=== PATIENT | male | born 1960 | race Caucasian/White ===

== ENCOUNTER 2017-02-24 13:59 | Inpatient (IN) | payer BC, OTHER ==
[~2017-02-24] VITALS: Ht 185.4 cm; Wt 111.1 kg
[2017-02-24] VITALS: BP 130/75
[2017-02-24] MEDS ORDERED: IBUPROFEN 400 MG TABLET PO PRN (14:30)
[2017-02-24] MEDS ORDERED: MIRALAX 17 GM POWD.PACK PO PRN (14:30)
[2017-02-24] MEDS ORDERED: ACETAMINOPHEN 325 MG TABLET PO PRN (14:30)
[2017-02-24] MEDS ORDERED: MAG HYDROX/AL HYDROX/SIMETH 30 ML LIQUID UDC PO PRN (14:30)
[2017-02-24] MEDS ORDERED: LORAZEPAM 2 MG/1 ML VIAL IM PRN (14:30)
[2017-02-24] MEDS ORDERED: ONDANSETRON ODT 4 MG TAB.RAPDIS SL PRN (14:30)
[2017-02-24] MEDS ORDERED: LORAZEPAM 1 MG TABLET PO PRN (14:30)
[2017-02-24] MEDS ORDERED: LOPERAMIDE HCL 2 MG CAPSULE PO PRN ×2 (14:30)
[2017-02-24] MEDS ORDERED: ONDANSETRON 4 MG/2 ML VIAL IM PRN (14:30)
[2017-02-24 15:00] VITALS: BP 173/95
--- NOTE | 2017-02-24 15:00 | NUR ---
Pre-admission Note: Client is seen in intake at this time. Alert and verbally responsive. Oriented x 4. Able to make his needs known. Patient states that he is here due to a drinking problem. He denies any allergies to any medication. Denies any seizure history in the past. Reports past medical hx of peripheral neuropathy, appendectomy, anxiety and insomnia. Patient appears anxious with fine tremors, and mild sweats. CIWA 4. BP 173/95, AK 101, PL 0/10, Temp 98.1, RR 18, O2 sat 95% via RA. Patient denies any complains of dizziness, drowsiness, chest pain, blurred vision or headache. Patient was seen by MD Almodovar while in intake and will continue with the admission process when patient arrives in the unit. Educated patient on the admission process and was able to verbalize good understanding of all teachings.
--- NOTE | 2017-02-24 15:05 | NUR ---
Admission Notes: Patient arrived in the unit at this time. A tour of the unit and explanation of policies and procedures were rendered and patient verbalized good understanding. He remains alert and verbally responsive. Oriented x 4. Appears anxious with mild tremors. Respirations even and unlabored. No SOB noted. Skin warm and moist to touch. Body search done. No contraband was found. Skin search done by male nurse. Noted with left knee skin abrasion patient states that he does not remember how he sustained it. Denies any fall episodes while at home. Abdomen soft and non-distended with (+) BS in all 4 quadrants. no complains of N/V/D or constipation noted at this time. LBM was this am 02/24/2017. Voids independently. Ambulatory ad gwendolyn with steady gait. Patient is a 57 year old male admitted for ETOH dependence under the care of Dr. Alexis Almodovar for ETOH dependence. He reports NKA. Wishes to be FULL CODE. Follows a regular diet at home. Denies seizure history. Reports past medical hx of peripheral neuropathy, anxiety, insomnia and appendectomy. He states that the cause of his relapse was due to negative emotions related to his divorces, feeling of loneliness and social isolation. He reports that his withdrawal symptoms are mainly tremors and DT's. Patient appears acutely intoxicated from ETOH at this time. Fall and seizure precautions in place. Ptient states hat his PCP is Dr. Eddie Jones. : Subtance Use History: 1. ETOH - at 43 years old; Drinks 3-4 bottles (750cc/ea) of wine and 750cc of Tequila daily. Last use was day of admission at 1000 750 ml of tequila. 2. Xanax - 1 mg PO intermittently x 1 year. Last use was a month ago. 3. Ambien - 10 mg PO intermittently x 1 year. Patient does not remember when the last time he took it. Treatment History: 1. Patient does not remember the place where he was but was in treatment in 2009 x 30 days. Safety precautions in place. Dr. Almodovar entered in admission orders and patient will be on a 5-day Ativan taper.
[2017-02-24] MEDS ORDERED: THIAMINE HCL 200 MG/2 ML VIAL IM ONE (15:13)
[2017-02-24] MEDS: CLONIDINE HCL 0.1 MG TABLET PO PRN (15:54)
--- NOTE | 2017-02-24 15:54 | NUR ---
Clonidine 0.1mg PO given: Patient's BP 173/95, Pulse 101. Appears anxious with mild tremors. CIWA 4. Medicated patient with Clonidine 0.1mg PO as ordered. Will monitor for effectiveness.
[2017-02-24 16:00] VITALS: BP 130/91
[2017-02-24 16:02] LABS: *AMPHETAMINE, URINE NEGATIVE (NEGATIVE); *BARBITURATE, URINE NEGATIVE (NEGATIVE); *CANNABINOID, URINE NEGATIVE (NEGATIVE); *COCCAINE, URINE NEGATIVE (NEGATIVE); *OPIATE, URINE NEGATIVE (NEGATIVE); *PHENCYCLIDINE SCREEN,URINE NEGATIVE (NEGATIVE)
[2017-02-24 16:30] LABS: BASOPHILS % (AUTO) 0.7 % (0.0-2.0); EOSINOPHILS % (AUTO) 0.3 % (0.0-7.0); HEMATOCRIT 45.8 % (40-50); HEMOGLOBIN 15.6 G/DL (14.0-18.0); LYMPHOCYTES # (AUTO) 1.8 K/UL (0.8-4.8); LYMPHOCYTES % (AUTO) 34.4 % (20.5-51.5); MEAN CORPUSCULAR HEMOGLOBIN 32.1 UUG (27.0-31.0); MEAN CORPUSCULAR HGB CONC 34 g/dL (32.0-37.0); MEAN CORPUSCULAR VOLUME 94.2 FL (82.0-92.0); MONOCYTES # (AUTO) 0.4 K/UL (0.1-1.30); MONOCYTES % (AUTO) 7.2 % (0.0-11.0); NEUTROPHILS # (AUTO) 2.9 K/UL (1.8-8.9); NEUTROPHILS % (AUTO) 57.4 % (38.5-71.5); PLATELET COUNT (AUTO) 194 K/UL (150-450); RED BLOOD CELL COUNT(AUTO) 4.87 MIL/UL (4.7-6.1); WHITE BLOOD COUNT (AUTO) 5.1 K/UL (4.0-11.2)
[2017-02-24 16:38] LABS: BILIRUBIN,TOTAL 0.4 mg/dL (0.2-1.0); CREATININE 0.8 mg/dL (0.6-1.3); MAGNESIUM 1.9 mg/dL (1.8-2.4); POTASSIUM 4.3 mmol/L (3.5-5.1); TOTAL PROTEIN, SERUM 8.3 g/dL (6.4-8.2)
--- NOTE | 2017-02-24 16:54 | NUR ---
Re-assessment: Clonidine Patient's BP 130/91. PRN Clonidine was effective.
[2017-02-24] MEDS ORDERED: SILD50TA PO (17:42)
[2017-02-24] MEDS ORDERED: VARD20TA31 PO (17:43)
--- NOTE | 2017-02-24 18:53 | NUR ---
End of Shift Notes: Patient will be on 5-day Ativan taper starting tomorrow. No adverse reactions noted. Withdrawal symptoms monitored. Initial CIWA 4, Last CIWA 4. VS monitored closely. BP 178/95 upon admission, medicated patient with Clonidine 0.1mg PO as ordered with help after 1 hour. Last BP 130/91. Compliant with care and treatment. All needs met and attended. Will monitor closely.
--- NOTE | 2017-02-24 19:45 | NUR ---
START OF SHIFT Received report from day shift nurse. Pt is lying in bed resting. He is a 57 yo male admitted to [facility] today for ETOH dependence. He is A&O x4 and ambulatory. NKA, full code status, and on a regular diet. He has a PMH appendectomy, peripheral neuropathy, anxiety, insomnia, DT's. On admission he reported using tequila 750mL and 3-4 750mL bottles of wine, xanax 1mg at bedtime, and ambien "unknown amount". 5 day Ativan taper to start tomorrow. Ativan one time ordered for tonight. Pt reports inability to relax and fall sleep. He is observed with facial flushing. Fall and seizure precautions in place. Bed is down with call light in reach.
[2017-02-24 20:00] VITALS: BP 134/92
[2017-02-24] MEDS ORDERED: LORAZEPAM 1 MG TABLET PO ONE (21:00)
[2017-02-24] MEDS: diphenhydrAMINE 50 MG CAPSULE PO PRN (21:27)
--- NOTE | 2017-02-24 21:27 | NUR ---
PRN Benadryl Pt reports inability to sleep. PRN Benadryl administered.
--- NOTE | 2017-02-24 22:27 | NUR ---
PRN Benadryl reassessment PRN Benadryl effective. Pt is lying in bed resting with eyes closed. Respirations even and unlabored. Safety measures in place.
[2017-02-25] VITALS (10 sets, daily range): BP systolic 130–192; BP diastolic 75–112
--- NOTE | 2017-02-25 | NUR ---
0000 CIWA deferred CIWA ordered Q4HWA. Pt is lying in bed resting with eyes closed. Respirations even and unlabored. Vital signs obtained. Safety measures in place.
[2017-02-25] MEDS: CLONIDINE HCL 0.1 MG TABLET PO PRN (04:21)
[2017-02-25] MEDS: LORAZEPAM 1 MG TABLET PO PRN ×2 (04:21→07:03)
--- NOTE | 2017-02-25 04:24 | NUR ---
PRN Ativan and Clonidine Pt's B/P is 160/99. He is anxious and unable to sleep. CIWA score 5. PRN Clonidine and Ativan administered.
--- NOTE | 2017-02-25 05:30 | NUR ---
PRN Clonidine and Ativan reassessment PRN Ativan effective. Pt reports feeling more relaxed. CIWA score 3. PRN Clonidine not effective. Pt's B/P is 163/92.
[2017-02-25] MEDS: hydrALAZINE HCL 50 MG TABLET PO PRN ×2 (05:45→12:35)
--- NOTE | 2017-02-25 05:45 | NUR ---
PRN Hydralazine Pt's B/P is 163/92 and HR 74. He is observed with facial flushing and has moist skin. He denies any other s/s of withdrawal. PRN Hydralazine administered.
--- NOTE | 2017-02-25 06:50 | NUR ---
PRN Hydralazine reassessment PRN Hydralazine mildly effective. Pt's B/P is 156/92 and HR 90. He is lying in bed resting.
--- NOTE | 2017-02-25 07:03 | NUR ---
PRN Ativan Pt's B/P is 156/92 and HR 90. He is experiencing cold sweats with mild hand tremors. CIWA 7. PRN Ativan administered.
--- NOTE | 2017-02-25 07:25 | NUR ---
END OF SHIFT Report provided to day shift nurse. Pt is lying in bed resting. He is a 57 yo male admitted to [facility] today for ETOH dependence. He is A&O and ambulatory. NKA, full code status, and on a regular diet. He has a PMH appendectomy, peripheral neuropathy, anxiety, insomnia, DT's. On admission he reported using tequila 750mL and 3-4 750mL bottles of wine, xanax 1mg at bedtime, and ambien "unknown amount". 5 day Ativan taper to start today. Pt was hypertensive. PRN Clonidine, Hydralazine, and Ativan x2 administered. Endorsed to day shift for PRN Ativan reassessment. Last CIWA was 7 prior to the Ativan. He drank 1500mL and slept for 4 hours. Fall and seizure precautions in place. Bed is down with call light in reach.
--- NOTE | 2017-02-25 07:49 | NUR ---
BEGINNING OF SHIFT Patient endorsement report received from seismology teacher nurse, all pertinent information discussed. patient is a 57 year old male admitted on: 02/24/2017. with admitting Dx: etoh/BZO dependence. patient Is scheduled to begin a 5 day Ativan taper as ordered, scheduled to begin day 1 of taper. patients skin is intact. per seismology teacher patient slept for 4 hours, and received PRN: clonidine, hydralazine and Ativan x2, during seismology teacher. Patient received awake, alert and oriented x4, educated regarding plan of care for the day and medication regimen with good verbal understanding. safety measures in place. call light kept with in reach, will continue to monitor, will reassess Ativan administration of 0700. will continue to monitor.
--- NOTE | 2017-02-25 08:00 | NUR ---
ATIVAN REASSESSMENT Medication ineffective, patient with current ciwa score of: 12. Patient is scheduled to begin 5 day Ativan, will administer first dose (0900) as ordered.
[2017-02-25 08:06] LABS: HEPATITIS B SURFACE AG Negative (Negative)
[2017-02-25] MEDS: MULTIVITAMINS,THERAPEUTIC TABLET PO SCH (08:25)
[2017-02-25] MEDS: LORAZEPAM 1 MG TABLET PO SCH ×4 (08:25→21:48)
[2017-02-25] MEDS: THIAMINE HCL 100 MG TABLET PO SCH (08:26)
[2017-02-25] MEDS: FOLIC ACID 1 MG TABLET PO SCH (08:26)
[2017-02-25] MEDS: ASPIRIN 81 MG TAB.CHEW PO SCH (08:26)
[2017-02-25] MEDS ORDERED: TUBERCULIN,PURIF.PROT.DERIV. 5 TU/0.1 ML TEST ID ONE (09:00)
--- NOTE | 2017-02-25 12:35 | NUR ---
PRN APRESOLINE Patient with blood pressure: 192/108 heart rate 101, administered Apresoline 50mg Po as ordered, will monitor effectiveness, patient denies chest pain or dizziness. will monitor closely.
--- NOTE | 2017-02-25 13:35 | NUR ---
PRN REASSESSMENT Patients blood pressure 189/92, notified MD per MD patient will input new orders.
[2017-02-25] MEDS ORDERED: AMLODIPINE 5 MG TABLET PO ONE ×2 (15:00→17:00)
[2017-02-25] MEDS: CLONIDINE HCL 0.2 MG TABLET PO PRN (15:07)
--- NOTE | 2017-02-25 15:09 | NUR ---
PRN CLONIDINE Patient continues with elevated blood pressure: BP at 1509: 184/112 heart rate of: 92, Administered clonidine 0.2mg PO as ordered, will monitor effectiveness of medication.
--- NOTE | 2017-02-25 16:30 | NUR ---
CLONIDINE REASSESSMENT Medication effective, patients blood pressure decreased to: 158/89 heart rate: 85, will continue to monitor. safety measures in place.
--- NOTE | 2017-02-25 16:46 | NUR ---
Therapist prompted client to attend group therapy. Client stated that he would attend.
--- NOTE | 2017-02-25 19:02 | NUR ---
END OF SHIFT Patient alert and orientedx4, compliant with therapeutic plan of care, patient with admitting Dx: eoth dependence. Patient continues on 5 day Ativan taper and continues on day 1 of taper, well tolerated, no ASE noted. Patient 0900 assessment presented with: fine tremors, sweating obvious on forehead, anxiety, mild pins and needles to feet with ciwa score of: 12; 1300 assessment patient presented with: fine tremors, sweats obvious on forehead, anxiety and mild pins and needles to feet with ciwa score of: 12; 1700 assessment patient presented with: fine tremors, sweats obvious on forehead, anxiety, mild pins and needles to feet with ciwa score of: 12. Patient was encouraged adequate PO fluid intake as tolerated. Encouraged to attend group therapies/sessions to learn new coping skills to prevent relapse, patient noted attending and participating denies any SI/HI. Patient received PRN: Apresoline and clonidine during shift, medications were effective. Patients safety measures in place. Call light kept with in reach. Endorsed to third shift lieutenant nurse, all pertinent information discussed. Will continue to monitor.
--- NOTE | 2017-02-25 20:00 | NUR ---
Start of Shift Notes Received 57 year old male admitted on: 02/24/2017. with admitting Dx: etoh/BZO dependence. Px Is on 5 day Ativan taper as ordered. Px is on Full Code, regular diet and has NKA. During the rounds at 2000, no complaints made as of the moment. Px just want to have pill to help him sleep tonight. Safety measures in place. Call light kept with in reach, We'll continue to monitor.
[2017-02-25] MEDS: diphenhydrAMINE 50 MG CAPSULE PO PRN (21:48)
--- NOTE | 2017-02-25 21:48 | NUR ---
PRN Benadryl Px request to have pill to help him sleep tonight. Benadryl 50 mg/cap, 1 cap given PO as PRN med. We'll continue to monitor.
[2017-02-26] VITALS: BP 158/96
--- NOTE | 2017-02-26 | NUR ---
CIWA deferred CIWA deferred due to the px is sleeping, to assess if the px is awake per doctor's order. We'll continue to monitor.
[2017-02-26 04:00] VITALS: BP 155/90
[2017-02-26] MEDS: CLONIDINE HCL 0.2 MG TABLET PO PRN (06:49)
[2017-02-26] MEDS: hydrALAZINE HCL 50 MG TABLET PO PRN (06:50)
--- NOTE | 2017-02-26 06:50 | NUR ---
PRN meds Px complained of H/A. BP= 177/114 , ND=86. Apresoline 50 mg/tab, 1 tab; Clonidine 0.2 mg/tab, 1 tab and Motrin 400 mg/tab, 1 tab given PO as PRN meds. We'll continue to monitor.
--- NOTE | 2017-02-26 07:13 | NUR ---
End of Shift Notes 57 year old male admitted on: 02/24/2017. with admitting Dx: etoh/BZO dependence. Px Is on 5 day Ativan taper as ordered.Px is on Full Code, regular diet and has NKA. During the shift, Px wanted to have pill to help him sleep tonight. Benadryl 50 mg/cap, 1 cap given PO as PRN med. Px complained of H/A at around 0645, BP= 177/114 , HI=86. Apresoline 50 mg/tab, 1 tab; Clonidine 0.2 mg/tab, 1 tab and Motrin 400 mg/tab, 1 tab given PO as PRN meds. Oral intake of 1 L, voided 2x, no BM. Slept for 7 hrs. Safety measures in place. Call light kept within reach, We'll continue to monitor.
--- NOTE | 2017-02-26 07:41 | NUR ---
BEGINNING OF SHIFT Patient endorsement report received from night warehouse manager nurse, all pertinent information discussed. patient is a 57 year old male admitted on: 02/24/2017. with admitting Dx: etoh/BZO dependence. patient Is scheduled to begin a 5 day Ativan taper as ordered, scheduled to begin day 2 of taper. patients skin is intact. per night warehouse manager patient slept for 7 hours, and received PRN: Apresoline, clonidine, and Motrin, during night warehouse manager. Patient received awake, alert and oriented x4, educated regarding plan of care for the day and medication regimen with good verbal understanding. safety measures in place. call light kept with in reach, will continue to monitor.
[2017-02-26] MEDS: FOLIC ACID 1 MG TABLET PO SCH (08:43)
[2017-02-26] MEDS: ASPIRIN 81 MG TAB.CHEW PO SCH (08:43)
[2017-02-26] MEDS: MULTIVITAMINS,THERAPEUTIC TABLET PO SCH (08:43)
[2017-02-26] MEDS: LORAZEPAM 1 MG TABLET PO SCH ×3 (08:44→20:59)
[2017-02-26] MEDS: THIAMINE HCL 100 MG TABLET PO SCH (08:44)
[2017-02-26 08:54] VITALS: BP 143/86
[2017-02-26] MEDS ORDERED: AMLODIPINE 5 MG TABLET PO SCH (09:00)
[2017-02-26 13:12] VITALS: BP 141/88
[2017-02-26 17:39] VITALS: BP 145/84
--- NOTE | 2017-02-26 18:58 | NUR ---
END OF SHIFT Patient alert and orientedx4, compliant with therapeutic plan of care, patient with admitting Dx: eoth dependence. Patient continues on 5 day Ativan taper and continues on day 2 of taper, well tolerated, no ASE noted. Patient 0900 assessment presented with: fine tremors, barely sweating, and moderate anxiety with ciwa score of: 7; 1300 assessment patient presented with: fine tremors and moderate anxiety with ciwa score of: 7;1700 assessment patient present with: fine tremors, and barely sweating with ciwa score of: 7. Patient was encouraged adequate PO fluid intake as tolerated. Encouraged to attend group therapies/sessions to learn new coping skills to prevent relapse, patient noted attending and participating denies any SI/HI. Patient received no PRNs during shift. Patients safety measures in place. Call light kept with in reach. Endorsed to night nurse nurse, all pertinent information discussed. Will continue to monitor.
--- NOTE | 2017-02-26 19:15 | NUR ---
START OF SHIFT : Pt. admitted on 02/24/2017 for ETOH dependence. Patient placed on 5 day Ativan taper on 02/25/2017 , well tolerated, no ASE noted. Upon 19:00 assessment patient present with: fine tremors, and barely sweating with CIWA score of: 7. Patient alert and oriented x4, compliant with therapeutic plan of care. Patient was encouraged adequate PO fluid intake as tolerated. Pt. attending the group , denies any SI/HI. Safety measures in place : bed on lowest position with side rails x2 up for safety, call light within reach. Will continue to monitor closely and offer help.
[2017-02-26 20:00] VITALS: BP 170/105
[2017-02-26] MEDS ORDERED: ATENOLOL 50 MG TABLET PO ONE (21:00)
[2017-02-26] MEDS ORDERED: LOSARTAN POTASSIUM 50 MG TABLET PO ONE (21:00)
[2017-02-27] VITALS: BP 126/78
[2017-02-27 04:00] VITALS: BP 142/81
--- NOTE | 2017-02-27 06:50 | NUR ---
END OF SHIFT : Pt. admitted on 02/24/2017 for ETOH dependence. Patient placed on 5 day Ativan taper on 02/25/2017 , well tolerated, no ASE noted. Pt remains compliant with the treatment plan. No PRNs were given during my shift. V/S remain WNL. RR=16, even and unlabored, lungs clear upon auscultation, abdomen soft and non- distended. Pt denies nausea, vomiting and diarrhea. CIWA taken when pt. was alert during the night, LAST CIWA=3 at 0400 , INTAKE= 1547 ml, voided x 3, slept 7 hours. Safety measures in place : bed on lowest position with side rails x2 up for safety, call light within reach. Will continue to monitor closely and offer help.
--- NOTE | 2017-02-27 07:59 | NUR ---
BEGINNING OF SHIFT Patient endorsement report received from supervisor steno pool nurse, all pertinent information discussed. patient is a 57 year old male admitted on: 02/24/2017. with admitting Dx: etoh/BZO dependence. patient continues on 5 day Ativan taper as ordered, scheduled to begin day 3 of taper. patients skin is intact. per supervisor steno pool patient slept for 7 hours, and received no PRNs during supervisor steno pool. Patient received awake, alert and oriented x4, educated regarding plan of care for the day and medication regimen with good verbal understanding. safety measures in place. call light kept with in reach, will continue to monitor.
[2017-02-27] MEDS ORDERED: LORAZEPAM 1 MG TABLET PO SCH (09:00)
[2017-02-27] MEDS ORDERED: ATENOLOL 50 MG TABLET PO SCH (09:00)
[2017-02-27] MEDS ORDERED: LOSARTAN POTASSIUM 50 MG TABLET PO SCH (09:00)
[2017-02-27 09:02] VITALS: BP 162/96
[2017-02-27] MEDS: MULTIVITAMINS,THERAPEUTIC TABLET PO SCH (09:02)
[2017-02-27] MEDS: FOLIC ACID 1 MG TABLET PO SCH (09:02)
[2017-02-27] MEDS: LORAZEPAM 1 MG TABLET PO SCH ×3 (09:02→20:40)
[2017-02-27] MEDS: ASPIRIN 81 MG TAB.CHEW PO SCH (09:03)
[2017-02-27] MEDS: hydrALAZINE HCL 50 MG TABLET PO PRN (09:03)
[2017-02-27] MEDS: THIAMINE HCL 100 MG TABLET PO SCH (09:03)
--- NOTE | 2017-02-27 09:03 | NUR ---
PRN APRESOLINE Patient with blood pressure: 162/96 heart rate 69, administered Apresoline 50mg Po as ordered, will monitor effectiveness, patient denies chest pain or dizziness. will monitor closely.
--- NOTE | 2017-02-27 10:03 | NUR ---
PRN REASSESSMENT Patients blood pressure 144/88, medication effective, will continue to monitor.
[2017-02-27 12:31] VITALS: BP 136/75
[2017-02-27] MEDS ORDERED: CARVEDILOL 12.5 MG TABLET PO ONE (15:00)
[2017-02-27 17:03] VITALS: BP 136/76
--- NOTE | 2017-02-27 18:50 | NUR ---
END OF SHIFT Patient alert and orientedx4, compliant with therapeutic plan of care, patient with admitting Dx: eoth dependence. Patient continues on 5 day Ativan taper and continues on day 3 of taper, well tolerated, no ASE noted. Patient 0900 assessment presented with: fine tremors, and anxiety with ciwa score of: 4; 1300 assessment patient presented with: fine tremors and anxiety with ciwa score of: 4; 1700 assessment patient presented with; fine tremors, and anxiety with ciwa score of: 4. Patient was encouraged adequate PO fluid intake as tolerated. Encouraged to attend group therapies/sessions to learn new coping skills to prevent relapse, patient noted attending and participating denies any SI/HI. Patient received PRN: Apresoline during shift, medication was effective. Patients safety measures in place. Call light kept with in reach. Endorsed to welder 2nd shift nurse, all pertinent information discussed. Will continue to monitor.
--- NOTE | 2017-02-27 18:50 | NUR ---
START OF SHIFT NOTE: Patient is a 42 year old female admitted to [facility] on 02/24/2017 for Benzodiazepines and Alcohol dependence, continue 5 Day Ativan Taper. Patient tolerated well without ASE. Patient remains compliant with treatment, medications, and diet regime. Patient reports NKA. Patient is on Full Code, Regular Diet, Fall and Seizures Precautions. Patient reports Past Medical History: Anxiety, Depression, Peripheral nephropathy, Insomnia, DT's, Substance abuse disorder, Tobacco use disorder. Patient reports substance use history: "Alcohol - Tequila PO 750 ml every day, or Wine PO 3-4 bottle/750 ml every day since 2006. Last used 750 m of Tequila on 02/24/2017". "Xanax 1 mg HS every day since 2015. Last used 1 mg in January,". "Ambien unknown amount three months ago". Patient reports history of recent Hospitalization/Treatment: "Unable recall name of the place - 2009 x30 days". Upon endorsement, patient is resting in her room. CIWA 7. VS: T: 98'2, BP: 124/76, HR: 60, RR: 16, RA O2Sat: 94%, pain level: "0/10". Respirations unlabored and even. Lung Sounds are clear throughout. Abdomen is soft. Bowel Sounds are active in all 4 quadrants. Skin is warm, and dry to touch. Patient has Left Knee healed abrasion. DVT pumps in place as ordered. Patient denies SI/HI. Encouraged to fluid intake as tolerated. Encouraged group activities to attend. All needs met. All safety measures in place: Call light within reach, bed in lowest position and locked, padded rails up x2. Will continue to monitor closely. Addendum: 02/28/17 at 0701 by YAMILE SWANSON RN Patient is a 57 year old male admitted to [facility] on 02/24/2017 for Alcohol dependence continue 5 Day Ativan Taper.
[2017-02-27 20:00] VITALS: BP 124/76
[2017-02-27] MEDS: CARVEDILOL 12.5 MG TABLET PO SCH (20:41)
[2017-02-27] MEDS ORDERED: LOSARTAN POTASSIUM 50 MG TABLET PO ONE (21:00)
[2017-02-28] VITALS: BP 134/79
[2017-02-28 04:00] VITALS: BP 130/80
--- NOTE | 2017-02-28 06:56 | NUR ---
END OF SHIFT NOTE: Patient is a 42 year old female admitted to [facility] on 02/24/2017 for Alcohol dependence continue 5 Day Ativan Taper. Patient tolerated well without ASE. Patient remains compliant with treatment, medications, and diet regime. Patient reports NKA. Patient is on Full Code, Regular Diet, Fall and Seizures Precautions. Patient reports Past Medical History: Anxiety, Depression, Peripheral nephropathy, Insomnia, DT's, Substance abuse disorder, Tobacco use disorder. Patient reports substance use history: "Alcohol - Tequila PO 750 ml every day, or Wine PO 3-4 bottle/750 ml every day since 2006. Last used 750 m of Tequila on 02/24/2017". "Xanax 1 mg HS every day since 2015. Last used 1 mg in January,". "Ambien unknown amount three months ago". Last CIWA 3 @0400. COWS/CIWA taken when patient's awake during night. Last VS @0400: T: 98.5, BP: 101/66, HR: 71, RR:16, RA O2Sat: 100%, pain level: "0/10". Patient denies SI/HI. Respirations unlabored and even. Skin is warm, and dry to touch. Patient has Left Knee healed abrasion. No PRN Medications administrated last police shift commander. Patient slept 5 hours, intake 1,490 ml, voided x4, stool x2. Encouraged fluids intake as tolerated. Encouraged to attend groups activities. All needs met. Safety measures on place. Call light within reach, bed in lowest position and locked, padded rails up bilaterally. Patient endorsed to day shift nurse. Report given. Addendum: 02/28/17 at 0701 by YAMILE SWANSON RN Patient is a 57 year old male admitted to [facility] on 02/24/2017 for Alcohol dependence continue 5 Day Ativan Taper.
--- NOTE | 2017-02-28 07:30 | NUR ---
START OF SHIFT Pt is a 57 yr old male, AA&Ox4. Pt was admitted 02/24/17 for ETOH/Benzo Dependence and is on 5 day Ativan taper as ordered. Medication ariana well. Received report from retail shift manager nurse. No PRN's were given during the night. Pt slept for 5 hrs. Last CIWA score was 3 at 0400. Pt denies any anxiety or agitation at this time. Skin is intact, warm and dry to touch. No Tremor seen or felt. Pt denies any n/v. Safety precautions observed. Call light is within reach. Will continue to monitor.
[2017-02-28 08:00] VITALS: BP 150/90
[2017-02-28] MEDS: MULTIVITAMINS,THERAPEUTIC TABLET PO SCH (08:36)
[2017-02-28] MEDS: LORAZEPAM 1 MG TABLET PO SCH ×2 (08:36→21:05)
[2017-02-28] MEDS: ASPIRIN 81 MG TAB.CHEW PO SCH (08:36)
[2017-02-28] MEDS: FOLIC ACID 1 MG TABLET PO SCH (08:36)
[2017-02-28] MEDS: THIAMINE HCL 100 MG TABLET PO SCH (08:36)
[2017-02-28] MEDS: CARVEDILOL 12.5 MG TABLET PO SCH ×2 (08:36→21:06)
[2017-02-28] MEDS: LOSARTAN POTASSIUM 50 MG TABLET PO SCH (08:44)
[2017-02-28] MEDS ORDERED: LORAZEPAM 1 MG TABLET PO SCH (09:00)
[2017-02-28 12:00] VITALS: BP 159/92
--- NOTE | 2017-02-28 12:11 | NUR ---
Therapist prompted client about group times. Client stated he will attend all groups today.
[2017-02-28 16:00] VITALS: BP 155/92
--- NOTE | 2017-02-28 19:00 | NUR ---
END OF SHIFT Pt is a 57 yr old male, AA&Ox4. Pt was admitted 02/24/17 for ETOH/Benzo Dependence and is on 5 day Ativan taper as ordered. Medication ariana well. Pt has been cooperative with plan of care and medication regimen. Pt attended group sessions. No PRN's were given. Last CIWA score was 1 at 1600. Pt denies any anxiety or agitation at this time. Skin is intact, warm and dry to touch. No Tremor seen or felt. Pt denies any n/v. Safety precautions observed. Call light is within reach.
--- NOTE | 2017-02-28 19:30 | NUR ---
START OF SHIFT Pt is a 57 yr old male, A/A&Ox4. Pt is admitted for ETOH/Benzo Dependence and is on 5 day Ativan taper as ordered. Pt is tolerating medication well.Pt is on regular diet,has NKA,on full code status.No seizure history noted.Received in a stable condition;no c/o pain or s/s of acute distress noted..All safety measures in place per hospital policy with call cooper within reach;will continue to monitor.
[2017-02-28 20:00] VITALS: BP 138/79
[2017-03-01] VITALS (7 sets, daily range): BP systolic 111–161; BP diastolic 79–104
--- NOTE | 2017-03-01 07:01 | NUR ---
END OF SHIFT Pt is a 57 yr old male, A/A&Ox4. Pt is admitted for ETOH/Benzo Dependence and is on 5 day Ativan taper as ordered. Pt is tolerating medication well.Pt is on regular diet,has NKA,on full code status.No seizure history noted;no c/o pain or s/s of acute distress noted.no prn meds given,pt slept 8 hrs,fluid intake was 1240 mls,voided x 3,b/m x 1..All safety measures in place per hospital policy with call cooper within reach;will continue to monitor.
--- NOTE | 2017-03-01 07:29 | NUR ---
LAST CIWA=0.
--- NOTE | 2017-03-01 07:39 | NUR ---
BEGINNING OF SHIFT Patient endorsement report received from tree pruner nurse, all pertinent information discussed. patient is a 57 year old male admitted on: 02/24/2017. with admitting Dx: etoh/BZO dependence. patient continues on 5 day Ativan taper as ordered, scheduled to begin day 5 of taper. patients skin is intact. per tree pruner patient slept for 8 hours, and received no PRNs during tree pruner. Patient received awake, alert and oriented x4, educated regarding plan of care for the day and medication regimen with good verbal understanding. safety measures in place. call light kept with in reach, will continue to monitor.
[2017-03-01] MEDS: hydrALAZINE HCL 50 MG TABLET PO PRN (08:49)
[2017-03-01] MEDS: THIAMINE HCL 100 MG TABLET PO SCH (08:49)
[2017-03-01] MEDS: FOLIC ACID 1 MG TABLET PO SCH (08:49)
[2017-03-01] MEDS: MULTIVITAMINS,THERAPEUTIC TABLET PO SCH (08:49)
[2017-03-01] MEDS: LOSARTAN POTASSIUM 50 MG TABLET PO SCH (08:49)
[2017-03-01] MEDS: CARVEDILOL 12.5 MG TABLET PO SCH ×2 (08:49→21:27)
[2017-03-01] MEDS: ASPIRIN 81 MG TAB.CHEW PO SCH (08:49)
--- NOTE | 2017-03-01 08:49 | NUR ---
PRN APRESOLINE Patient with blood pressure: 161/104 heart rate 66, administered Apresoline 50mg Po as ordered, will monitor effectiveness, patient denies chest pain or dizziness. will monitor closely.
[2017-03-01] MEDS ORDERED: LORAZEPAM 1 MG TABLET PO SCH (09:00)
--- NOTE | 2017-03-01 09:49 | NUR ---
PRN REASSESSMENT Patients blood pressure 146/82, medication effective, will continue to monitor.
[2017-03-01] MEDS ORDERED: CARV12.52 PO (14:53)
[2017-03-01] MEDS ORDERED: AMLO5TAB2 PO (14:53)
[2017-03-01] MEDS ORDERED: DIPH50CA37 PO (14:53)
[2017-03-01] MEDS ORDERED: LOSA50TA3 PO (14:53)
[2017-03-01] MEDS ORDERED: ASPI81TA31 PO (14:53)
--- NOTE | 2017-03-01 19:20 | NUR ---
END OF SHIFT Patient alert and orientedx4, compliant with therapeutic plan of care, patient with admitting Dx: eoth dependence. Patient continues on 5 day Ativan taper and continues on day 5 of taper, well tolerated, no ASE noted. Patient completed Ativan taper and is scheduled to be discharged tomorrow, noted self motivated towards sobriety. Patient 0900 assessment presented with: anxiety with ciwa score of: 3; 1300 assessment patient presented with: mild anxiety with ciwa score of: 1; 1700 assessment patient presented with: mild anxiety with ciwa score of;1. Patient was encouraged adequate PO fluid intake as tolerated. Encouraged to attend group therapies/sessions to learn new coping skills to prevent relapse, patient noted attending and participating denies any SI/HI. Patient received PRN: Apresoline during shift, medication was effective. Patients safety measures in place. Call light kept with in reach. Endorsed to orthopedic assistant nurse, all pertinent information discussed. Will continue to monitor.
--- NOTE | 2017-03-01 19:30 | NUR ---
START OF SHIFT Pt is a 57 yr old male, A/A&Ox4. Pt is admitted for ETOH/Benzo Dependence .Pt has completed 5 day Ativan taper as ordered and is scheduled for discharge tomorrow.Pt is on regular diet,has NKA,on full code status.No seizure history noted.Received in a stable condition;no c/o pain or s/s of acute distress noted.Last CIWA = 1.PO fluids encouraged as tolerated.All safety measures in place per hospital policy with call cooper within reach;will continue to monitor.
[2017-03-01] MEDS ORDERED: AMLODIPINE 5 MG TABLET PO ONE (21:00)
[2017-03-02] VITALS: BP 118/76
[2017-03-02] MEDS: diphenhydrAMINE 50 MG CAPSULE PO PRN (00:01)
--- NOTE | 2017-03-02 00:01 | NUR ---
PRN BENADRYL GIVEN ORDERED FOR C/O INSOMNIA.WILL MONITOR.
--- NOTE | 2017-03-02 01:00 | NUR ---
PRN F/U PT IS RESTING IN BED,STATED HE IS BEGINNING TO FALL ASLEEP,REQUESTING NOT TO BE WOKEN UP AT 0400 FOR V/S.WILL CONTINUE TO MONITOR.
--- NOTE | 2017-03-02 04:00 | NUR ---
V/S REFUSED;CIWA DEFERRED. PT REQUESTED NOT TO BE WOKEN UP FOR V/S IF HE IS SLEEPING.PT NOTED TO BE IN DEEP SLEEP.CIWA DEFERRED D/T SLEEP.NO S/S OF DISTRESS NOTED.
--- NOTE | 2017-03-02 06:44 | NUR ---
END OF SHIFT-- Pt is a 57 yr old male, A/A&Ox4. Pt is admitted for ETOH/Benzo Dependence .Pt has completed 5 day Ativan taper as ordered and is scheduled for discharge today.Pt is anxious about going to a new place.PRN Benadryl was given to help sleep per pt request,pt slept 5 hrs,fluid intake was 1296 mls,voided x 3,b/m x 1.Pt is on regular diet,has NKA,on full code status.No seizure history noted.Pt is in a stable condition;no c/o pain or s/s of acute distress noted.Last CIWA = 1.PO fluids encouraged as tolerated.All safety measures in place per hospital policy with call cooper within reach;will continue to monitor.
--- NOTE | 2017-03-02 07:30 | NUR ---
START OF SHIFT Pt 57 y/o male admitted for etoh dependence. Pt received in room awake sitting on bed. Pt alert and oriented to name, place, and time. Perrla. Skin warm and dry to touch. Respirations even and unlabored. It was reported that pt slept for 5 hours last night. Pt is scheduled to be discharged today and is excited about discharge. Bed on lowest position with side rails x2 up for safety. Call light within reach. No distress noted at this time.
[2017-03-02] MEDS: MULTIVITAMINS,THERAPEUTIC TABLET PO SCH (08:12)
[2017-03-02] MEDS: FOLIC ACID 1 MG TABLET PO SCH (08:13)
[2017-03-02] MEDS: LOSARTAN POTASSIUM 50 MG TABLET PO SCH (08:13)
[2017-03-02] MEDS: CARVEDILOL 12.5 MG TABLET PO SCH (08:13)
[2017-03-02] MEDS: ASPIRIN 81 MG TAB.CHEW PO SCH (08:13)
[2017-03-02] MEDS: THIAMINE HCL 100 MG TABLET PO SCH (08:13)
[2017-03-02 08:22] VITALS: BP 136/81
[2017-03-02] MEDS ORDERED: AMLODIPINE 5 MG TABLET PO SCH (09:00)
--- NOTE | 2017-03-02 09:54 | NUR ---
DISCHARGE Pt 57 y/o male admitted for etoh dependence. Pt alert and oriented to name, place, and time. Perrla. Skin warm and dry to touch. Respirations even and unlabored. No hand tremors noted. Pt discharged to [facility] via private transport. No belongings noted in cabinet. No belongings in cassette noted. No home medications noted clarified with pt that he does not have any home medications. All discharge papers and prescriptions packed in pt bag. No distress noted. Pt excited about being discharge. Addendum: 03/02/17 at 1038 by DARRYN LOPEZ RN additional VS wnl.
== END 2017-03-02 09:54 | disposition other institution (70) | DRG 895 ==
LOC: SRC 13:59
PROVIDERS: ADMIT Internal Medicine; ATTEND Internal Medicine
PROC: HZ2ZZZZ Detoxification Services for Substance Abuse Treatment (ICD-10-PCS; principal; 2017-02-24)
PROC: HZ41ZZZ Group Counseling for Substance Abuse Treatment, Behavioral (ICD-10-PCS; 2017-02-25)
PROC: HZ31ZZZ Individual Counseling for Substance Abuse Treatment, Behavioral (ICD-10-PCS; 2017-02-26)
DX: F10.230 Alcohol dependence with withdrawal, uncomplicated (principal); K70.10 Alcoholic hepatitis without ascites; G62.1 Alcoholic polyneuropathy; Y90.9 Presence of alcohol in blood, level not specified; F13.90 Sedative, hypnotic, or anxiolytic use, unspecified, uncomplicated; F41.9 Anxiety disorder, unspecified; G47.00 Insomnia, unspecified; I10 Essential (primary) hypertension; Z81.1 Family history of alcohol abuse and dependence
CPT/HCPCS: 36415; 70030-TC; 80307; 83690; 83735; 85025; 86580; 86592; 86705; 86803; 87340; 87806; A4663; G0480; J3411; Q0163